=== PATIENT | male | born 1965 | race Caucasian/White ===

== ENCOUNTER 2017-07-20 09:12 | Emergency (ER) | payer OTHER ==
[~2017-07-20] VITALS: Ht 182.9 cm; Wt 81.6 kg
--- NOTE | 2017-07-20 09:12 | NUR ---
C/O EYE PAIN RASH TODAY . PT VERBALIZED SI TAKES MEDICATION. DENIES HI. AWAITING MD ORDER
--- NOTE | 2017-07-20 09:17 | NUR ---
CALLED PT WAITING ROOM NO ANSWER
[2017-07-20 10:06] LABS: BASOPHILS % (AUTO) 0.7 % (0.0-2.0); EOSINOPHILS # (AUTO) 0.1 /CMM (0.0-0.7); EOSINOPHILS % (AUTO) 3.8 % (0.0-6.0); HEMATOCRIT 35 % (39-51); HEMOGLOBIN 12.1 g/dL (13.5-17.5); LYMPHOCYTES # (AUTO) 0.8 /CMM (0.8-4.8); LYMPHOCYTES % (AUTO) 23.3 % (20.0-44.0); MEAN CORPUSCULAR HEMOGLOBIN 33 PG (26.0-33.0); MEAN CORPUSCULAR HGB CONC 35 g/dl (31.0-36.0); MEAN CORPUSCULAR VOLUME 95 fL (80-96); MONOCYTES # (AUTO) 0.3 /CMM (0.1-1.30); MONOCYTES % (AUTO) 8.2 % (2.0-12.0); NEUTROPHILS # (AUTO) 2.3 /CMM (1.8-8.9); PLATELET COUNT (AUTO) 207 /CMM (150-450); RDW COEFFICIENT OF VARIATION 12.4 (11.5-15.0); RED BLOOD CELL COUNT(AUTO) 3.68 MIL/uL (4.5-6.0); WHITE BLOOD COUNT (AUTO) 3.5 K/uL (4.3-11.0)
[2017-07-20 10:19] LABS: INR 1.01 (0.87-1.13); PROTHROMBIN TIME 10.5 SECS (9.5-12.7)
[2017-07-20 10:23] LABS: TROPONIN I < 0.017 ng/mL (0.00-0.056)
[2017-07-20 10:25] LABS: CALCIUM, SERUM 8.6 mg/dL (8.5-10.1); CARBON DIOXIDE 30 mmol/L (21-32); CHLORIDE 109 mmol/L (98-107); CREATININE 0.7 mg/dL (0.6-1.3); GLUCOSE 107 mg/dL (74-106); POTASSIUM 4.1 mmol/L (3.5-5.1); SODIUM SERUM 143 mmol/L (136-145); UREA NITROGEN, BLOOD 13 mg/dL (7-18)
[2017-07-20] MEDS ORDERED: HYDR-548 PO (10:25)
[2017-07-20] MEDS ORDERED: AMPH20TA3 PO (10:25)
[2017-07-20] MEDS ORDERED: DASA100T PO (10:25)
[2017-07-20 10:30] LABS: ALANINE AMINOTRANSFERASE 89 U/L (12-78); ALBUMIN 3.6 g/dL (3.4-5.0); ALKALINE PHOSPHATASE 77 U/L (46-116); ASPARTATE AMINOTRANSFERASE 61 U/L (15-37); BILIRUBIN,DIRECT 0.1 mg/dL (0.0-0.2); BILIRUBIN,TOTAL 0.5 mg/dL (0.2-1.0); TOTAL PROTEIN, SERUM 6.5 g/dL (6.4-8.2)
--- NOTE | 2017-07-20 10:38 | NUR ---
[facility] PAGED [phone] [address]AL [place] LEAD ARCHITECT
--- NOTE | 2017-07-20 10:49 | NUR ---
ROOM 316-1 VIVEK GEORGE
--- NOTE | 2017-07-20 10:58 | NUR ---
GAVE REPORT TO KAHUKU 316-1 CELLULITIS . AKIN MONCADA NP ADMITTING
[2017-07-20 11:25] VITALS: BP 120/75
--- NOTE | 2017-07-20 15:18 | NUR ---
SPOKE WITH CANDELARIA TRAN [phone] PT IS CAPITATED TO [facility], DR MALDONADO SPOKE WITH SHADE MONCADA AND ACCEPTED PT. SPOKE WITH AKIN AT [facility] [phone] [place] [facility] [facility] PT WILL NEED TO GO ADMITTIING AND RM # WILL BE PROVIDED. NURSE TO GIVE REPORT TO [phone]. Addendum: 07/20/17 at 1518 by TAMARA RATLIFF CMG Amended: Links added.
== END 2017-07-20 11:47 | disposition other institution (70) ==
LOC: ER 09:14
DX: L03.211 Cellulitis of face (principal); I10 Essential (primary) hypertension; Z59.0 Homelessness
CPT/HCPCS: 36415; 71010-TC; 80048-TC; 80076-TC; 83605-TC; 84484-TC; 85025-TC; 85730-TC; 87040-TC; 87081-TC; A4606; J2543; J3370; J7060; Z7610